=== PATIENT | male | born 1935 | race Caucasian/White ===

== ENCOUNTER → 2017-03-30 | Outpatient (CLI) | payer MEDICARE ==
[~2017-03-30] MED LIST: ASPI-496 PO; ASPI-515 PO; AZIT500T5 PO; CARV3.122 PO; CEFD300C37 PO; CHOL2000 PO; DIAZ5TAB PO; DOCU-180 PO; FURO-92 PO; GUAI-110 PO; LEVO500T47 PO; LISI1POW PO; LISI2.5T PO; LISI5TAB7 PO; OXYC-302 PO; SIMV40TA3 PO; SIMV5TAB5 PO; SPIR25TA3 PO; TIZA4TAB9 PO
== END | disposition home or self-care (01) ==
LOC: CFH 10:44
PROVIDERS: ATTEND Internal Medicine Cardiovascular Disease
DX: I08.0 Rheumatic disorders of both mitral and aortic valves (principal); I25.5 Ischemic cardiomyopathy; I10 Essential (primary) hypertension; I25.2 Old myocardial infarction; Z87.891 Personal history of nicotine dependence; Z95.810 Presence of automatic (implantable) cardiac defibrillator
CPT/HCPCS: 93306

== ENCOUNTER → 2017-05-06 | Outpatient (CLI) | payer MEDICARE | END | disposition home or self-care (01) | LOC: RAD 10:57 | PROVIDERS: ATTEND Pain Medicine Pain Medicine | DX: M19.011 Primary osteoarthritis, right shoulder (principal) ==

== ENCOUNTER → 2017-10-06 | Outpatient (CLI) | payer MEDICARE | END | disposition home or self-care (01) | LOC: RAD 10:56 | PROVIDERS: ATTEND Internal Medicine Cardiovascular Disease | DX: J90 Pleural effusion, not elsewhere classified (principal); J98.11 Atelectasis; R91.1 Solitary pulmonary nodule; I10 Essential (primary) hypertension; E78.2 Mixed hyperlipidemia; I25.5 Ischemic cardiomyopathy; I73.9 Peripheral vascular disease, unspecified; J44.9 Chronic obstructive pulmonary disease, unspecified | CPT/HCPCS: 71046 ==

== ENCOUNTER 2018-06-14 06:07 | Day surgery (SDC) | payer MEDICARE, OTHER ==
[~2018-06-14] VITALS: Ht 172.7 cm; Wt 93.6 kg
[~2018-06-14 06:07] MED LIST changes: -SPIR25TA3 PO; +SPIR25TA5 PO
[2018-06-14] MEDS ORDERED: SODIUM CHLORIDE 0.9% 1,000 ML IV SCH (07:04)
[2018-06-14 07:05] VITALS: BP 122/66
[2018-06-14] MEDS ORDERED: CARV12.52 PO (07:10)
[2018-06-14] MEDS ORDERED: FURO40TA6 PO (07:10)
[2018-06-14] MEDS ORDERED: LISI2.5T PO (07:10)
[2018-06-14] MEDS ORDERED: LIDOCAINE-MPF 1%, 5ML ONE (07:51)
== END 2018-06-14 13:30 | disposition home or self-care (01) ==
LOC: OUT 06:07
PROVIDERS: ATTEND Neurological Surgery
DX: M48.062 Spinal stenosis, lumbar region with neurogenic claudication (principal); M48.02 Spinal stenosis, cervical region; Z95.0 Presence of cardiac pacemaker; Z87.891 Personal history of nicotine dependence
CPT/HCPCS: 62284; 72126; 72129; 72132; J7030; Q9967

== ENCOUNTER → 2018-12-02 | Outpatient (CLI) | payer MEDICARE ==
[~2018-12-02] MED LIST changes: +CARV12.52 PO; +FURO40TA6 PO; +SIMV5TAB14 PO; -SIMV5TAB5 PO
== END | disposition home or self-care (01) ==
LOC: CFH 14:04
PROVIDERS: ATTEND Internal Medicine Cardiovascular Disease
DX: I35.8 Other nonrheumatic aortic valve disorders (principal)
CPT/HCPCS: 93306

== ENCOUNTER 2018-12-23 10:04 | Day surgery (SDC) | payer MEDICARE ==
[~2018-12-23] VITALS: Ht 175.3 cm; Wt 90.9 kg
[2018-12-23] MEDS ORDERED: SODIUM CHLORIDE 0.9% 1,000 ML IV SCH (10:49)
[2018-12-23] MEDS ORDERED: CEFAZOLIN PMX 1GM/50ML 50 ML ONE (12:09)
[2018-12-23] MEDS ORDERED: MIDAZOLAM 1 MG/ML, 2ML ONE (12:09)
[2018-12-23] MEDS ORDERED: FENTANYL PF 100 MCG/2ML ONE (12:09)
[2018-12-23] MEDS ORDERED: CEFAZOLIN 1,000 MG ONE (12:09)
[2018-12-23] MEDS ORDERED: LIDOCAINE 1%, 20ML ONE (12:09)
[2018-12-23 12:11] LABS: BASOPHILS # (AUTO) 0.04 x10^3/uL (0-0.1); BASOPHILS % (AUTO) 1 % (0-1); EOSINOPHILS # (AUTO) 0.31 x10^3/uL (0-0.4); EOSINOPHILS % (AUTO) 5 % (1-7); LYMPHOCYTES # (AUTO) 1.55 x10^3/uL (1-3.4); LYMPHOCYTES % (AUTO) 24 % (22-44); MD NO; MEAN CORPUSCULAR HEMOGLOBIN 30.4 pg (27.5-34.5); MEAN CORPUSCULAR HGB CONC 33.3 g/dL (33.2-36.2); MEAN CORPUSCULAR VOLUME 91.4 fL (81-97); MEAN PLATELET VOLUME 7.9 fL (7.4-10.4); MONOCYTES # (AUTO) 0.97 x10^3/uL (0.2-0.8); MONOCYTES % (AUTO) 15 % (2-9); NEUTROPHILS # (AUTO) 3.52 x10^3/uL (1.8-6.8); NEUTROPHILS % (AUTO) 55 % (42-75); PLATELET COUNT 174 x10^3/uL (130-400); RED BLOOD COUNT 5.81 x10^6/uL (4.38-5.82); RED CELL DISTRIBUTION WIDTH 13.9 % (9.4-14.8)
[2018-12-23 12:19] LABS: ANION GAP 3 mmol/L (5-15); CALCIUM 9.6 mg/dL (8.5-10.1); CHLORIDE 110 mmol/L (98-107); CREATININE 1.49 mg/dL (0.7-1.3)
[2018-12-23] MEDS ORDERED: HOLD MEDICATION MC PRN (13:00)
[2018-12-23] MEDS ORDERED: HYDROcodone/APAP 5/325 TABLET PO PRN (13:00)
[2018-12-23] MEDS ORDERED: SODIUM CHLORIDE FLUSH 10ML SYR IVF SCH (21:00)
== END 2018-12-23 14:31 | disposition home or self-care (01) ==
LOC: CACL 10:04
PROVIDERS: ATTEND Internal Medicine Cardiovascular Disease
DX: Z45.02 Encounter for adjustment and management of automatic implantable cardiac defibrillator (principal); E11.22 Type 2 diabetes mellitus with diabetic chronic kidney disease; I12.9 Hypertensive chronic kidney disease with stage 1 through stage 4 chronic kidney disease, or unspecified chronic kidney disease; N18.2 Chronic kidney disease, stage 2 (mild); E78.5 Hyperlipidemia, unspecified; J44.9 Chronic obstructive pulmonary disease, unspecified; I47.2 Ventricular tachycardia; Z95.1 Presence of aortocoronary bypass graft; Z79.84 Long term (current) use of oral hypoglycemic drugs
CPT/HCPCS: 33263; 36415; 80048; 85025; 99156; C1721; J0690; J2250; J3010

== ENCOUNTER → 2020-04-18 | Outpatient (CLI) | payer MEDICARE ==
[~2020-04-18] MED LIST changes: +AZIT500T10 PO; -AZIT500T5 PO; +SIMV40TA20 PO; -SIMV40TA3 PO
== END | disposition home or self-care (01) ==
LOC: CFH 14:02 → EDSTATUS 14:15
PROVIDERS: ATTEND Nurse Practitioner
DX: R60.0 Localized edema (principal); M25.571 Pain in right ankle and joints of right foot

== ENCOUNTER → 2020-05-15 | Outpatient (CLI) | payer MEDICARE | END | disposition home or self-care (01) | LOC: CFH 12:28 | PROVIDERS: ATTEND Internal Medicine Cardiovascular Disease | DX: I08.0 Rheumatic disorders of both mitral and aortic valves (principal); I25.5 Ischemic cardiomyopathy | CPT/HCPCS: 93306 ==